=== PATIENT | female | born 1950 | race African-American/Black ===

== ENCOUNTER 2019-09-02 09:04 | Inpatient (IN) | payer BC, MEDICAID ==
[~2019-09-02] VITALS: Ht 162.6 cm; Wt 97.5 kg
[~2019-09-02 09:04] MED LIST: TRAM50TA94 MT
[2019-09-02 13:31] LABS: BASOPHILS % 0.6 % (0.0-2.0); EOSINOPHILS % 1.2 % (0.0-5.0); HEMATOCRIT. 40.5 % (36.0-48.0); HEMOGLOBIN. 13.1 g/dL (12.0-16.0); LYMPHOCYTES % 42.7 % (20.0-50.0); MEAN CORPUSCULAR HEMOGLOBIN 24.3 pg (28.0-32.0); MEAN CORPUSCULAR VOLUME 75.3 fL (81.0-99.0); MONOCYTES % 8.1 % (2.0-8.0); NEUTROPHILS % 47.4 % (40.0-76.0); PLATELET 396 x1000/uL (130-400); RED BLOOD CELL COUNT 5.38 mill/uL (4.2-5.4); RED CELL DISTRIBUTION WIDTH 23.6 % (11.6-14.6)
[2019-09-02 13:39] LABS: CHLORIDE 108 mEq/L (98-107)
[2019-09-02 14:03] LABS: PLATELET ESTIMATE NORMAL
[2019-09-02] MEDS: HYDROCODONE/ACETAMINOPHEN 5/325MG TABLET PO PRN ×2 (16:22→23:13)
[2019-09-02] MEDS ORDERED: IPRATROPIUM/ALBUTEROL 0.5-3(2.5)MG/3ML NEB NEB PRN (18:45)
[2019-09-02] MEDS ORDERED: ONDANSETRON HCL 4MG/2ML INJ IV PRN (18:45)
[2019-09-02] MEDS ORDERED: DOCUSATE SODIUM 100MG CAPSULE PO PRN (18:45)
[2019-09-02] MEDS ORDERED: DIPHENHYDRAMINE 50MG/ML VIAL IV PRN (18:45)
[2019-09-02] MEDS ORDERED: MAGNESIUM/ALUMINUM HYDROXIDE/SIMETHICONE 30ML UDC PO PRN (18:45)
[2019-09-02] MEDS ORDERED: ACETAMINOPHEN 325MG TABLET PO PRN (18:45)
[2019-09-02] MEDS ORDERED: CLONIDINE 0.1MG TABLET PO PRN (18:45)
[2019-09-02] MEDS ORDERED: ACETAMINOPHEN 650MG SUPP PR PRN (18:45)
[2019-09-02] MEDS ORDERED: GUAIFENESIN 200MG/10ML SUGAR FREE UDC PO PRN (18:45)
[2019-09-02] MEDS ORDERED: NA PHOS,M-B/NA PHOS,DI-BA ENEMA 118ML PR PRN (18:45)
[2019-09-02] MEDS ORDERED: LORAZEPAM 0.5MG TABLET PO PRN (18:45)
[2019-09-02] MEDS ORDERED: DEXTROSE 50% WATER 50ML SYRINGE IV PRN (18:45)
[2019-09-02 19:05] LABS: BG CARBOXYHEMOGLOBIN 0.8 % (0.5-1.5); BG DEOXYHEMOGLOBIN 7.6 % (0.0-5.0); BG FRACTION INSPIRED OXYGEN 21; BG HCO3 ACT 25.7 mmol/L (22.0-26.0); BG OXYGEN SATURATION 92.3 % (92.0-98.5); BG OXYHEMOGLOBIN 91.6 % (94.0-97.0); BG PCO2 41.5 mmHg (35.0-45.0); BG PO2 64.9 mmHg (75.0-100.0); BG SAMPLE SITE RIGHT RADIAL; BG TOTAL HEMOGLOBIN 12.5 g/dL (12.0-18.0); BG VENT MODE ROOM AIR
[2019-09-02 19:58] LABS: PROTHROMBIN TIME 10.4 sec (9.6-11.0)
[2019-09-02 22:00] VITALS: BP 138/86
[2019-09-02] MEDS: INSULIN LISPRO 100 UNITS/ML SUBCUT SCH (22:30)
[2019-09-02] MEDS ORDERED: FAMOTIDINE 20MG TABLET PO SCH (22:30)
[2019-09-02] MEDS: METHYLPREDNISOLONE SOD SUCC 125 MG/2 ML VIAL IV SCH (23:12)
[2019-09-02] MEDS: BLOOD SUGAR DIAGNOSTIC STRIP TEST SCH (23:24)
[2019-09-02] MEDS ORDERED: LEVOFLOXACIN 500MG PREMIX 100 ML IV SCH (23:30)
[2019-09-03] VITALS: BP 141/59
[2019-09-03] MEDS ORDERED: METF-414 MT (00:49)
[2019-09-03] MEDS ORDERED: LEDI1TAB MT (00:49)
[2019-09-03] MEDS ORDERED: LOT205 MT (00:49)
[2019-09-03] MEDS ORDERED: ROSU5TAB MT (00:49)
[2019-09-03] MEDS ORDERED: CHOL200059 PO (00:49)
[2019-09-03] MEDS ORDERED: FURO20TA4 MT (00:49)
[2019-09-03] MEDS ORDERED: SPIR25TA6 MT (00:49)
[2019-09-03 01:12] LABS: CREATINE KINASE MB FRACTION 1.5 ng/mL (0.5-3.6)
[2019-09-03 04:00] VITALS: BP 145/72
[2019-09-03 06:07] LABS: BASOPHILS % 0.2 % (0.0-2.0); HEMATOCRIT. 35.6 % (36.0-48.0); HEMOGLOBIN. 11.6 g/dL (12.0-16.0); LYMPHOCYTES % 21.5 % (20.0-50.0); MEAN CORPUSCULAR HEMOGLOBIN 24.1 pg (28.0-32.0); MEAN CORPUSCULAR VOLUME 74.2 fL (81.0-99.0); MEAN PLATELET VOLUME 7.3 fl (7.4-10.4); MONOCYTES % 1.3 % (2.0-8.0); PLATELET 383 x1000/uL (130-400); RED CELL DISTRIBUTION WIDTH 23.3 % (11.6-14.6)
[2019-09-03 06:52] LABS: CHLORIDE 108 mEq/L (98-107)
[2019-09-03 07:06] LABS: LDL CHOLESTEROL 89 mg/dL (5-100)
[2019-09-03 07:07] LABS: CREATINE KINASE 126 IU/L (26-192)
[2019-09-03 07:08] LABS: CREATINE KINASE MB FRACTION 1.5 ng/mL (0.5-3.6); T4 FREE 1.01 ng/dL (0.76-1.46)
[2019-09-03 07:09] LABS: HDL CHOLESTEROL 38 mg/dL (40-59)
[2019-09-03] MEDS: BLOOD SUGAR DIAGNOSTIC STRIP TEST SCH ×2 (07:38→12:45)
[2019-09-03] MEDS: INSULIN LISPRO 100 UNITS/ML SUBCUT SCH ×2 (07:39→12:56)
[2019-09-03] MEDS: IPRATROPIUM/ALBUTEROL 0.5-3(2.5)MG/3ML NEB NEB SCH ×2 (08:27→14:17)
[2019-09-03 08:28] VITALS: BP 126/72
[2019-09-03] MEDS: METHYLPREDNISOLONE SOD SUCC 125 MG/2 ML VIAL IV SCH (09:42)
[2019-09-03 09:55] LABS: CLARITY URINE CLOUDY (CLEAR); COLOR URINE YELLOW (YELLOW); KETONES URINE NEGATIVE (NEGATIVE); LEUKOCYTE ESTERASE URINE NEGATIVE (NEGATIVE); NITRITE URINE NEGATIVE (NEGATIVE); OCCULT BLOOD URINE NEGATIVE (NEGATIVE); PH URINE 8.5 (4.5-8.0); PROTEIN URINE NEGATIVE (NEGATIVE); SPECIFIC GRAVITY URINE 1.016 (1.005-1.030); UROBILINOGEN URINE 0.2 E.U./dL (0.2-1.0)
[2019-09-03 10:10] LABS: *AMPHETAMINES SCREEN URINE NEGATIVE (NEGATIVE); *BARBITURATES SCREEN URINE NEGATIVE (NEGATIVE); *BENZODIAZEPINES SCREEN URINE NEGATIVE (NEGATIVE); *COCAINE SCREEN URINE NEGATIVE (NEGATIVE); METHADONE URINE SCREEN NEGATIVE (NEGATIVE)
[2019-09-03 10:11] LABS: CANNABINOID URINE SCREEN NEGATIVE (NEGATIVE); PHENCYCLIDINE URINE SCREEN NEGATIVE (NEGATIVE)
[2019-09-03 10:12] LABS: OPIATES URINE SCREEN PRESUMTIVE POSITIVE (NEGATIVE)
[2019-09-03 12:10] VITALS: BP 163/87
[2019-09-03] MEDS: HYDROCODONE/ACETAMINOPHEN 5/325MG TABLET PO PRN (12:52)
[2019-09-03 15:32] VITALS: BP 166/84
[2019-09-03 17:20] VITALS: BP 120/65
[2019-09-03] MEDS ORDERED: ENOXAPARIN 30MG/0.3ML SYR SUBCUT SCH (21:00)
[2019-09-03] MEDS ORDERED: LEVOFLOXACIN 500MG PREMIX 100 ML IV SCH (21:00)
== END 2019-09-03 18:45 | disposition home or self-care (01) | DRG 193 ==
LOC: ER 09:46 → 6WST 15:05 → ENRESERV 19:50 → CANBEDREQ 09-03 01:58
PROVIDERS: ADMIT Internal Medicine; ATTEND Internal Medicine
DX: J18.9 Pneumonia, unspecified organism (principal); I50.33 Acute on chronic diastolic (congestive) heart failure; I11.0 Hypertensive heart disease with heart failure; E11.9 Type 2 diabetes mellitus without complications; E86.0 Dehydration; F17.210 Nicotine dependence, cigarettes, uncomplicated; K57.90 Diverticulosis of intestine, part unspecified, without perforation or abscess without bleeding; J06.9 Acute upper respiratory infection, unspecified; Z87.01 Personal history of pneumonia (recurrent); Z91.19 Patient's noncompliance with other medical treatment and regimen; Z88.6 Allergy status to analgesic agent; Z86.19 Personal history of other infectious and parasitic diseases; Z79.899 Other long term (current) drug therapy
CPT/HCPCS: 36415; 36600; 71045; 71250; 74018; 80053; 80061; 80305; 81003; 82375; 82550; 82553; 82805; 82962; 83036; 83880; 84439; 84443; 84484; 85025; 87077; 87186; 93005; 93970; 99285; J1815; J1956; J2930; J7620

== ENCOUNTER 2019-10-07 06:45 | Emergency (ER) | payer BC, MEDICAID ==
[~2019-10-07] VITALS: Ht 162.6 cm; Wt 95.0 kg
[~2019-10-07 06:45] MED LIST changes: +CHOL200059 PO; +FURO20TA4 MT; +LEDI1TAB MT; +LOT205 MT; +METF-414 MT; +ROSU5TAB MT; +SPIR25TA6 MT
[2019-10-07] MEDS ORDERED: SODIUM CHLORIDE 0.9% 1,000 ML IV ONE (07:03)
[2019-10-07] MEDS ORDERED: KETOROLAC 30MG/ML VIAL IV STA (07:03)
[2019-10-07 08:17] LABS: BASOPHILS % 0.3 % (0.0-2.0); EOSINOPHILS % 0.1 % (0.0-5.0); HEMATOCRIT. 31.3 % (36.0-48.0); HEMOGLOBIN. 10.2 g/dL (12.0-16.0); LYMPHOCYTES % 10.2 % (20.0-50.0); MEAN CORPUSCULAR VOLUME 76.9 fL (81.0-99.0); MEAN PLATELET VOLUME 6.6 fl (7.4-10.4); MONOCYTES % 7.7 % (2.0-8.0); NEUTROPHILS % 81.7 % (40.0-76.0); PLATELET 373 x1000/uL (130-400); RED BLOOD CELL COUNT 4.08 mill/uL (4.2-5.4); RED CELL DISTRIBUTION WIDTH 18.8 % (11.6-14.6)
[2019-10-07 08:19] LABS: CHLORIDE 107 mEq/L (98-107)
[2019-10-07 08:20] LABS: INR 1.1; PROTHROMBIN TIME 11.4 sec (9.6-11.0)
[2019-10-07] MEDS ORDERED: KCL 20MEQ/100ML PREMIX 100 ML IV ONE (08:45)
[2019-10-07] MEDS ORDERED: POTASSIUM CHLORIDE 20MEQ TABLET SR PO ONE (08:45)
[2019-10-07] MEDS ORDERED: CEFTRIAXONE 1 G PREMIX 50 ML IV ONE (11:15)
[2019-10-07] MEDS ORDERED: METRONIDAZOLE 500 MG PREMIX 100 ML IV ONE (11:15)
[2019-10-07 13:34] VITALS: BP 144/61
== END 2019-10-07 14:41 | disposition short-term general hospital (02) ==
LOC: ER 06:45
DX: K57.32 Diverticulitis of large intestine without perforation or abscess without bleeding (principal); E87.6 Hypokalemia; E11.9 Type 2 diabetes mellitus without complications; I11.0 Hypertensive heart disease with heart failure; I50.9 Heart failure, unspecified; Z87.891 Personal history of nicotine dependence; Z79.82 Long term (current) use of aspirin
CPT/HCPCS: 36415; 74176; 80053; 83690; 85025; 85610; 96365; 96366; 96368; 96375; 99285; J0696; J1885; J3480; J3490; J7030